=== PATIENT | male | born 1995 | race Two or more races ===

== ENCOUNTER 2020-06-03 19:36 | Emergency (ER) | payer SELFPAY ==
--- NOTE | 2020-06-03 20:43 | ER Document Report ---
ED Hand/Wrist Injury - General Chief Complaint: Wrist Pain Stated Complaint: WRIST INJURY Time Seen by Provider: 06/03/20 20:36 Mode of Arrival: Ambulatory Information source: Patient Notes: Patient is a 24-year-old male comes emergency room complaining of left wrist abnormality. 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 He was lifting something carrying it and felt a pop in his wrist at the base of the thumb. He feels like he has a bone sticking out. This occurred 2 nights ago at work. Patient states that it is painful especially when touched. Denies any known traumatic events with the exception of carrying trays. TRAVEL OUTSIDE OF THE [place] IN LAST 30 DAYS: No - HPI Injury to: Wrist Onset: Other - 2 days ago Where: Work Timing: Constant Quality of pain: Burning, Sharp Severity: Moderate Pain Level: 3 Past Medical History - General Information source: Patient - Social History Smoking Status: Never Smoker Chew tobacco use (# tins/day): No Frequency of alcohol use: None Drug Abuse: None Lives with: Family Family History: Reviewed & Not Pertinent Review of Systems - Review of Systems Constitutional: No symptoms reported EENT: No symptoms reported Cardiovascular: No symptoms reported Respiratory: No symptoms reported Gastrointestinal: No symptoms reported Genitourinary: No symptoms reported Male Genitourinary: No symptoms reported Skin: No symptoms reported Hematologic/Lymphatic: No symptoms reported Neurological/Psychological: No symptoms reported -: Yes All other systems reviewed and negative Physical Exam - Vital signs Vitals: Temp Pulse Resp BP Pulse Ox 98.2 F 59 L 18 118/54 L 100 06/03/20 19:45 06/03/20 19:45 06/03/20 19:45 06/03/20 19:45 06/03/20 19:45 Interpretation: Bradycardic - Notes Notes: PHYSICAL EXAMINATION: GENERAL: Well-appearing, well-nourished and in no acute distress. HEAD: Atraumatic, normocephalic. EYES: Pupils equal round and reactive to light, extraocular movements intact, sclera anicteric, conjunctiva are normal. LUNGS: Breath sounds clear to auscultation bilaterally and equal. No wheezes rales or rhonchi. HEART: Regular rate and rhythm without murmurs Musculoskeletal; examination patient's area concern is his left wrist. Base of the thumb right at the joint space between the distal ulna and the carpals p atient has a slight deformity of a solid mass that is very firm to touch almost bone like in the appearance and in palpation. Very tender to palpate as well. He has good pulses on that hand and has good range of motion with flexion extension as well as opposition. Is just the deformity that is popped up. NEUROLOGICAL: Normal speech, normal gait. Normal sensory, motor exams SKIN: Warm, Dry, normal turgor, no rashes or lesions noted. Course - Re-evaluation Re-evalutation: 06/03/20 22:12 X-rays were negative for any acute findings. I believe this to be more of a tendinitis on patient's flexor tendon at the base of the left thumb. I will implement a re-splint and steroids and have him follow-up with hand. - Vital Signs Vital signs: Temp Pulse Resp BP Pulse Ox 98.2 F 59 L 18 118/54 L 100 06/03/20 20:34 06/03/20 19:45 06/03/20 19:45 06/03/20 19:45 06/03/20 19:45 Procedures - Immobilization Left Wrist Immobilizer type: Cock-up Performed by: PCT Post-Proc Neuro Vasc Exam: Normal Alignment checked and good: Yes Discharge - Discharge Clinical Impression: Flexor tendinitis of hand Condition: Stable Disposition: HOME, SELF-CARE Instructions: Wrist Sprain ([facility]) Additional Instructions: As we discussed I believe you have a tendinitis of that wrist. I am placing you on this plan to use it for the next 8 to 10days and even when you sleep tonight you can loosen it up but sleepiness so you do not bend the wrist. You can ice the area down 3 times a day as well. Take the medication until gone. I will give you the name of the orthopedist on-call charline may contact his office to see if he can accommodate you. Prescriptions: Prednisone 10 mg PO ASDIR #21 tablet Forms: Return to Work Referrals: GIOVANNA BARILLAS, DO [ACTIVE STAFF] - Follow up as needed
--- NOTE | 2020-06-03 21:03 | RADIOLOGY REPORT (SQ) ---
EXAM DESCRIPTION: XR WRIST 3 OR MORE VIEWS CLINICAL HISTORY: 24 years, Male, bony abnormality at base thumb COMPARISON: None. TECHNIQUE: Three views of the left breast. FINDINGS: No evidence for fracture dislocation. No suspicious soft tissue abnormalities. IMPRESSION: Negative left wrist study.
[2020-06-04 03:32] VITALS: BP 112/60
== END 2020-06-03 22:35 | disposition home or self-care (01) ==
LOC: ER 19:36
DX: M77.9 Enthesopathy, unspecified (principal); M25.532 Pain in left wrist; X50.9XXA Other and unspecified overexertion or strenuous movements or postures, initial encounter; Y99.0 Civilian activity done for income or pay
CPT/HCPCS: 99283

== ENCOUNTER 2020-10-24 02:34 | Emergency (ER) | payer SELFPAY ==
[2020-10-24 04:37] LABS: ABSOLUTE BASOPHILS # (AUTO) 0.1 10^3/uL (0.0-0.2); ABSOLUTE EOSINOPHILS # (AUTO) 0.1 10^3/uL (0.0-0.6); ABSOLUTE MONOCYTES (AUTO) 0.4 10^3/uL (0.1-1.4); ABSOLUTE NEUT (AUTO) 7.9 10^3/uL (1.7-8.2); BASOPHILS % (AUTO) 0.7 % (0-2); EOSINOPHILS % (AUTO) 0.9 % (0-6); HEMATOCRIT 39.5 % (37.9-51.0); HEMOGLOBIN 13.1 g/dL (13.5-17.0); LYMPHOCYTES % (AUTO) 10.4 % (13-45); MEAN CORPUSCULAR HEMOGLOBIN 28.6 pg (27.0-33.4); MEAN CORPUSCULAR HGB CONC 33.2 g/dL (32.0-36.0); MEAN CORPUSCULAR VOLUME 86 fl (80-97); MONOCYTES % (AUTO) 4.4 % (3-13); PLATELET COUNT 276 10^3/uL (150-450); RED BLOOD COUNT 4.59 10^6/uL (4.35-5.55); RED CELL DISTRIBUTION WIDTH 13.4 % (11.5-14.0); SEGMENTED NEUTROPHILS % (AUTO) 83.6 % (42-78); TOTAL CELLS COUNTED % (AUTO) 100 %; WHITE BLOOD COUNT 9.5 10^3/uL (4.0-10.5)
[2020-10-24 04:43] LABS: APPEARANCE,URINE SLIGHTLY-CLOUDY; BILIRUBIN,URINE NEGATIVE (NEGATIVE); COLOR,URINE YELLOW; GLUCOSE, URINE NEGATIVE (NEGATIVE); KETONES,URINE NEGATIVE (NEGATIVE); LEUKOCYTE ESTERASE,URINE NEGATIVE (NEGATIVE); NITRITE,URINE NEGATIVE (NEGATIVE); PROTEIN,URINE 100 mg/dL (NEGATIVE); URINE SPECIFIC GRAVITY 1.026; UROBILINOGEN,URINE NEGATIVE mg/dL (<2.0)
[2020-10-24 05:02] LABS: ALBUMIN 4.5 g/dL (3.5-5.0); ALKALINE PHOSPHATASE 64 U/L (38-126); ANION GAP 8 (5-19); ASPARTATE AMINO TRANSFERASE 23 U/L (17-59); BILIRUBIN,DIRECT 0.2 mg/dL (0.0-0.4); BILIRUBIN,TOTAL 0.4 mg/dL (0.2-1.3); BLOOD UREA NITROGEN 16 mg/dL (7-20); CALCIUM 9.8 mg/dL (8.4-10.2); CARBON DIOXIDE 29 mmol/L (22-30); CHLORIDE 104 mmol/L (98-107); GLUCOSE 128 mg/dL (75-110); POTASSIUM 4.4 mmol/L (3.6-5.0); TOTAL PROTEIN 7.3 g/dL (6.3-8.2)
--- NOTE | 2020-10-24 09:16 | ER Document Report ---
ED General - General Chief Complaint: Lower Abdominal Pain Stated Complaint: LOWER ABDOMINAL PAIN Time Seen by Provider: 10/24/20 09:02 Mode of Arrival: Ambulatory Information source: Patient TRAVEL OUTSIDE OF THE [place] IN LAST 30 DAYS: No - HPI Notes: This patient is a 25-year-old male who presents with a fairly rapid onset of right lower quadrant abdominal pain that started yesterday evening as he was leaving his company [employer]. He said the pain was tolerable and he actually went to bed and slept for a couple of hours. It woke him up about 2 hours later shortly after midnight much more intense. He says he feels it in the front in the right lower quadrant and it radiates straight through to the back and the right lower quadrant. It does not go anywhere else. He was slightly nauseated but did not vomit. He has had no diarrhea. He denies any melena hematochezia or hematemesis. He denies any fever or chills. On careful questioning he reports that he had a history of 1 kidney stone that he said was "pretty large" at age 17 which passed spontaneously. He says this pain is not exactly like that and is not quite as intense. He says he is otherwise healthy and is on no medications. He says he is not been ill in any other way recently. - Related Data Allergies/Adverse Reactions: No Known Allergies Allergy (Verified 10/24/20 02:51) Past Medical History - General Information source: Patient - Social History Smoking Status: Current Every Day Smoker Family History: Reviewed & Not Pertinent - Medical History Medical History: Other Notes: Past medical history as documented in electronic health record is reviewed. Renal/ Medical History: Reports: Hx Kidney Stones - 1 prior stone age 17. Review of Systems - Review of Systems Notes: All other systems are reviewed and are negative or noncontributory except as noted in the present illness. Physical Exam - Vital signs Vitals: Temp Pulse BP Pulse Ox 97.9 F 65 137/75 H 96 10/24/20 02:48 10/24/20 02:48 10/24/20 02:48 10/24/20 02:48 - Notes Notes: General: This is a well-developed slender male in no acute distress. Vital signs and nursing chief complaint are reviewed. Lungs: Clear to auscultation all panchal. Heart: Regular rate and rhythm no murmur. Back: No CVA tenderness to percussion. Abdomen: Flat, nondistended, soft, active bowel sounds. Mild right lower quadrant direct tenderness. No guarding or rebound. No masses or organomegaly. Course - Re-evaluation Re-evalutation: 10/24/20 09:15 Patient was offered pain meds but he says he feels quite comfortable right now. We discussed differential diagnostic possibilities. Given that his labs are essentially completely unremarkable except for his microscopic hematuria I think stone disease is the most likely diagnosis. Appendicitis or some other bowel inflammation seems much less likely given his history, quite benign abdominal exam, and laboratory results. I have ordered a CT of the abdomen and pelvis without contrast as a stone survey. Disposition will be dependent upon these results. 10/24/20 10:[address] scan reveals a 2 mm stone in the right mid ureter. He has mild hydronephrosis. His pain has remained well controlled without any further intervention. I discussed management with him. My plan is to discharge him home on Flomax. He will have a small supply of hydrocodone and a small supply of ondansetron. I will give him a note to be off work for the next 2 days. He should follow-up with his primary care provider to discuss possible urology referral or return here if his pain worsens or if any other concerning symptoms develop. The patient was cautioned that his pain might increase as the stone descends into the distal ureter since it has several bends and kinks to go through before and will drop into the bladder but that given the small size of the stone he has greater than a 95% chance of passing this spontaneously. - Vital Signs Vital signs: Temp Pulse Resp BP Pulse Ox 98.1 F 84 14 128/78 H 100 10/24/20 11:25 10/24/20 11:25 10/24/20 11:25 10/24/20 11:25 10/24/20 11:25 - Laboratory Results Result Diagrams: 10/24/20 04:07 10/24/20 04:07 Laboratory Results Interpreted: 10/24/20 10/24/20 10/24/20 04:07 04:07 04:07 Hgb 13.1 L Lymph % (Auto) 10.4 L Seg Neutrophils % 83.6 H Glucose 128 H Urine Protein 100 H Urine Blood LARGE H Critical Laboratory Results Reviewed: No Critical Results - Radiology Results Critical Radiology Results Reviewed: No Critical Results Discharge - Discharge Clinical Impression: Ureterolithiasis Condition: Good Disposition: HOME, SELF-CARE Instructions: Kidney Stone ([facility]) Additional Instructions: Make sure you drink plenty of water at least 8 glasses a day. Stay well- hydrated at all times. Prescriptions for Flomax, hydrocodone/acetaminophen, and ondansetron have been sent to your pharmacy for you. Please pick these up and take them according to label directions. Follow-up with your primary care doctor if your symptoms not resolved. Return to the emergency department if your symptoms worsen or if any other concerning symptoms develop. Prescriptions: Hydrocodone/Acetaminophen [[place] 5-325 Tablet] 1 - 2 each PO Q6HP PRN #20 tablet PRN Reason: Severe Pain Ondansetron [Ondansetron Odt] 8 mg PO Q6HP PRN #10 tab.rapdis PRN Reason: Nausea Tamsulosin HCl [Flomax] 0.4 mg PO DAILY #5 cap.er.24h Forms: Return to Work
--- NOTE | 2020-10-24 10:13 | RADIOLOGY REPORT (SQ) ---
EXAM DESCRIPTION: CT ABD/PELVIS NO ORAL OR IV IMAGES COMPLETED DATE/TIME: 10/24/2020 9:25 am REASON FOR STUDY: RLQ pain, hematuria COMPARISON: None. TECHNIQUE: CT scan of the abdomen and pelvis performed without intravenous or oral contrast. Images reviewed with lung, soft tissue, and bone windows. Reconstructed coronal and sagittal MPR images revi ewed. All images stored on PACS. All CT scanners at this facility use dose modulation, iterative reconstruction, and/or weight based d osing when appropriate to reduce radiation dose to as low as reasonably achievable (ALARA). [facility]: Dose Right [facility]: CareDose [facility]: Dose Right [facility]: Teradose 4D [facility]: Smart Counselytics RADIATION DOSE: CT Rad equipment meets quality standard of care and radiation dose reduction techniq ues were employed. CTDIvol: 4.9 mGy. DLP: 259 mGy-cm.mGy. LIMITATIONS: None. FINDINGS: LOWER CHEST: No significant findings. No nodules or infiltrates. NON-CONTRASTED LIVER, SPLEEN, ADRENALS: Evaluation limited by lack of IV contrast. No identified sign ificant masses. PANCREAS: No masses. No peripancreatic inflammatory changes. GALLBLADDER: No identified stones by CT criteria. No inflammatory changes to suggest cholecystitis. RIGHT KIDNEY AND URETER: No suspicious masses. Assessment limited by lack of IV contrast. 2 mm ston e in the ureter the level of L3- 4. Mild -moderate hydronephrosis. LEFT KIDNEY AND URETER: No suspicious masses. Assessment limited by lack of IV contrast. No signifi cant calcifications. No hydronephrosis or hydroureter. AORTA AND RETROPERITONEUM: No aneurysm. No retroperitoneal masses or adenopathy. BOWEL AND PERITONEAL CAVITY: No obvious masses or inflammatory changes. No free fluid. APPENDIX: Normal. PELVIS, BLADDER, AND ABDOMINAL WALL:No abnormal masses. No free fluid. Bladder normal. BONES: No significant findings. OTHER: No other significant finding. IMPRESSION: 2 mm stone right ureter. Mild -moderate hydronephrosis. COMMENT: Quality ID # [id number]: Final reports with documentation of one or more dose reduction techniques (e.g., Automated exposure control, adjustment of the mA and/or kV according to patient size, use of iterative reconstruction technique) TECHNICAL DOCUMENTATION: JOB ID: [id number] [employer]- All Rights Reserved Reading location - IP/workstation name: [email or web address]
[2020-10-24 11:26] VITALS: BP 128/78
[2020-10-24] MEDS ORDERED: IBUPROFEN 600 MG TABLET PO ONE (11:26)
[2020-10-24] MEDS ORDERED: ACETAMINOPHEN 325 MG TABLET PO ONE (11:26)
== END 2020-10-24 11:30 | disposition home or self-care (01) ==
LOC: ER 02:34
DX: N13.2 Hydronephrosis with renal and ureteral calculous obstruction (principal); R10.31 Right lower quadrant pain; R10.813 Right lower quadrant abdominal tenderness; R11.0 Nausea; R31.29 Other microscopic hematuria; F17.200 Nicotine dependence, unspecified, uncomplicated
CPT/HCPCS: 36415; 74176; 80053; 81001; 83690; 85025; 99284